=== PATIENT | female | born 1950 | race Caucasian/White ===

== ENCOUNTER → 2016-06-21 | Outpatient (CLI) | payer BC ==
[~2016-06-21] MED LIST: LISI-729 PO; WARF5TAB7 PO
--- NOTE | 2016-06-21 15:07 | MAMMOGRAPHY REPORT ---
BILATERAL DIGITAL SCREENING MAMMOGRAM WITH CAD: 06/21/2016 CLINICAL HISTORY: Routine screening. Patient has no complaints. TECHNIQUE: Current study was also evaluated with a Computer Aided Detection (CAD) system. Bilatera l CC and MLO views were obtained. COMPARISON: Comparison is made to exams dated: 04/22/2015 ultrasound, 04/22/2015 mammogram, 05/21/2014 mammogram, 04/10/2013 mammogram, 04/03/2012 mammogram, and 03/29/2011 mammogram - [facility]. BREAST COMPOSITION: There are scattered areas of fibroglandular density in both breasts. FINDINGS: No suspicious masses, calcifications, or areas of architectural distortion are noted in e ither breast. There has been no significant interval change compared to prior exams. IMPRESSION: ACR BI-RADS CATEGORY 1: NEGATIVE There is no mammographic evidence of malignancy. A 1 year screening mammogram is recommended. The p atient will receive written notification of the results. Approximately 10% of breast cancers are not detected with mammography. A negative mammographic repor t should not delay biopsy if a clinically suggestive mass is present. Karyn Nava M.D. /:06/21/2016 12:36:55 Meat [employer]: Veronika ACE(Kelsy)(M), [facility] letter sent: Normal 1/2 BI-RADS Code: ACR BI-RADS Category 1: Negative
== END | disposition home or self-care (01) ==
LOC: C.MAMM 09:48
PROVIDERS: ATTEND Nurse Practitioner Family
DX: Z12.31 Encounter for screening mammogram for malignant neoplasm of breast (principal); M85.88 Other specified disorders of bone density and structure, other site; M81.0 Age-related osteoporosis without current pathological fracture

== ENCOUNTER → 2017-05-07 | Outpatient (CLI) | payer BC ==
--- NOTE | 2017-05-07 18:18 | DIAGNOSTIC IMAGING REPORT ---
RIGHT LOWER EXTREMITY VENOUS DOPPLER CLINICAL HISTORY: Right leg edema. History of blunt trauma. COMPARISON STUDY: Right lower extremity venous Doppler June 02 2015. TECHNIQUE: Sonography of the deep venous system of the right lower extremity was performed. Compression and augmentation were evaluated. FINDINGS: The common femoral, superficial femoral and popliteal veins were compressible. Augmentation was normal. Flow was shown within the deep calf vessels. Note was made of nonocclusive superficial thrombus within the right greater saphenous vein that extends from the proximal to distal right thigh. The amount of thrombus is diminished when compared to exam of June 02, 2015. IMPRESSION: 1. No evidence of deep venous thrombus within the right lower extremity. 2. Nonocclusive superficial thrombus within the right greater saphenous vein which is likely chronic when correlating with ultrasound of June 02, 2015 which demonstrated thrombus within this vessel at that time. Electronically signed by: Yon Alegria M.D. 05/07/2017 6:17 PM Dictated Date/Time: 05/07/2017 6:14 PM
== END | disposition home or self-care (01) ==
LOC: C.ULTR 17:40
PROVIDERS: ATTEND Student in an Organized Health Care Education/Training Program
DX: R60.0 Localized edema (principal)